=== PATIENT | female | born 1935 | race African-American/Black ===

== ENCOUNTER 2018-03-23 13:47 | Emergency (ER) | payer MEDICAID ==
[~2018-03-23] VITALS: Ht 162.6 cm; Wt 88.0 kg
[2018-03-23 13:51] VITALS: Ht 162.6 cm; Wt 88.0 kg
[2018-03-23 14:53] VITALS: BP 144/90
== END 2018-03-23 14:53 | disposition home or self-care (01) ==
LOC: ED 13:47
DX: R21 Rash and other nonspecific skin eruption (principal); L12.0 Bullous pemphigoid; I10 Essential (primary) hypertension; E11.9 Type 2 diabetes mellitus without complications; Z88.0 Allergy status to penicillin
CPT/HCPCS: 82962; J1100

== ENCOUNTER 2018-09-09 12:28 | Emergency (ER) | payer OTHER ==
[~2018-09-09] VITALS: Ht 170.2 cm; Wt 94.8 kg
[2018-09-09 12:51] VITALS: BP 143/81; Ht 170.2 cm; Wt 94.8 kg
== END 2018-09-09 14:30 | disposition home or self-care (01) ==
LOC: ED 12:28
DX: S52.571A Other intraarticular fracture of lower end of right radius, initial encounter for closed fracture (principal); I10 Essential (primary) hypertension; W01.0XXA Fall on same level from slipping, tripping and stumbling without subsequent striking against object, initial encounter; Y93.89 Activity, other specified; Y92.89 Other specified places as the place of occurrence of the external cause; Y99.8 Other external cause status
CPT/HCPCS: A4570